=== PATIENT | male | born 1960 | race Caucasian/White ===

== ENCOUNTER 2016-03-28 09:13 | Emergency (ER) | payer BC, OTHER ==
[2016-03-28] MEDS ORDERED: oxyCODONE/Acetamin 5/325 MG* TAB PO ONE (09:44)
[2016-03-28 10:14] LABS: Hematocrit 45 % (42-52); Mean Corpuscular HGB Conc 33 g/dl (31-36); Mean Corpuscular Hemoglobin 30 pg (27-31); Mean Corpuscular Volume 91 fL (80-94); Mean Platelet Volume 7 um3 (7.4-10.4); Red Blood Count 4.96 10^6/ul (4.0-5.4); Red Cell Distribution Width 14 % (10.5-15); White Blood Count 14.3 10^3/ul (3.5-10.8)
[2016-03-28 10:40] LABS: BUN/Creatinine Ratio 11.9 (8-20); Calcium 9.7 mg/dL (8.6-10.3); EGFR Non-African American 94.9 (>60); Globulin 3.5 g/dL (2-4); Potassium 3.9 mmol/L (3.5-5.0); Total Bilirubin 0.6 mg/dL (0.2-1.0); Total Protein 7.5 g/dL (6.4-8.9)
[2016-03-28] MEDS ORDERED: NS 0.9% 1000 ML* 2,000 ML IV ONE (10:43)
[2016-03-28] MEDS ORDERED: Clindamycin 600 MG IVPREMIX(* 600 MG/50 ML SDV IV ONE (10:44)
[2016-03-28] MEDS ORDERED: NS 0.9% IV ONE (10:46)
[2016-03-28] MEDS ORDERED: Iohexol 300* (CONTRAST) 10 ML SDV IV ONE (10:54)
--- NOTE | 2016-03-28 11:17 | RAD ---
Indication: Dental pain, facial swelling. CT of the facial bones was obtained in the axial plane. Coronal and sagittal reconstructed images were obtained. The frontal sinuses are unremarkable. No abnormal erosions are noted. Ethmoid air cells are otherwise unremarkable. The orbits are intact. Mucous retention cyst are noted in the floor of both maxillary sinuses. The maxilla demonstrates no evidence of abnormal fractures. The parotid glands are unremarkable. Submandibular glands are unremarkable. There is soft tissue swelling superficial to the right mandibular ramus. There appears to be resorption bone with multiple dental caries in the right lower bicuspid with lucent areas within the mandible. Large lucent area with erosion of the outer cortex of the mandible is noted. No drainable fluid collections are noted. IMPRESSION: SOFT TISSUE SWELLING OVER THE RIGHT RAMUS OF THE MANDIBLE. THERE APPEARS TO BE A LUCENCY AT THE APEX OF THE RIGHT LOWER BICUSPIDS WITH EROSION OF THE OUTER CORTEX OF THE MANDIBLE. MULTIPLE DENTAL CARIES ARE NOTED.
--- NOTE | 2016-03-28 11:31 | ED ---
Throat Pain/Nasal Congestion - HPI Summary HPI Summary: 55F w/ PMH ogf basal cell carincoma presents with right lower dental pain since yesterday. woke up with swelling to right side of jaw. He denies any chest pain or shortness of breath. He says the pain is starting to go down his neck. He denies any fever. He has basal cell carincoma on his upper lip. - History of Current Complaint Chief Complaint: EDDentalPain Time Seen by Provider: 03/28/16 09:29 - Allergies/Home Medications Allergies/Adverse Reactions: Allergies Allergy/AdvReac Type Severity Reaction Status Date / Time No Known Allergies Allergy Verified 03/28/16 09:25 PMH/Surg Hx/FS Hx/Imm Hx Endocrine/Hematology History: Denies: Hx Diabetes Cardiovascular History: Denies: Hx Hypertension History: Denies: Hx Renal Disease - Cancer History Cancer Type, Location and Year: basal cell upper lip - Surgical History Surgery Procedure, Year, and Place: EUA right knee. left wrist fusion Infectious Disease History: Yes Infectious Disease History: Denies: Traveled Outside the [place] in Last 30 Days - Family History Known Family History: Negative: Cardiac Disease - Social History Alcohol Use: Rare Substance Use Type: Reports: None Smoking Status (MU): Current Every Day Smoker Review of Systems Negative: Fever Positive: Dental Pain, Other - facial swelling Negative: Chest Pain Negative: Shortness Of Breath All Other Systems Reviewed And Are Negative: Yes Physical Exam Triage Information Reviewed: Yes Vital Signs On Initial Exam: Initial Vitals Temp Pulse Resp BP Pulse Ox 98.4 F 87 17 129/71 98 03/28/16 09:22 03/28/16 09:22 03/28/16 09:22 03/28/16 09:22 03/28/16 09:22 Vital Signs Reviewed: Yes Appearance: Positive: Pain Distress Skin: Positive: Warm, Dry Head/Face: Positive: Other - swelling noted of right jaw Eyes: Positive: Normal, EOMI, SHAHRAM, Conjunctiva Clear ENT: Positive: Normal ENT inspection, Pharynx normal, TMs normal, Dental tenderness. Negative: Muffled/hoarse voice Dental: Positive: Percussion Tenderness @ - 29-30, Gross Decay/Caries @, Other - tenderness along jaw line, no submanidubular tenderness Neck: Positive: Supple, Nontender, No Lymphadenopathy Respiratory/Lung Sounds: Positive: Clear to Auscultation, Breath Sounds Present Cardiovascular: Positive: Normal, RRR - Bowlus Coma Scale Coma Scale Total: 15 Diagnostics - Vital Signs Vital Signs Temp Pulse Resp BP Pulse Ox 03/28/16 09:22 98.4 F 87 17 129/71 98 - Laboratory Lab Results: Lab Results 03/28/16 03/28/16 03/28/16 Range/Units 09:55 09:55 09:55 WBC 14.3 H (3.5-10.8) 10^3/ul RBC 4.96 (4.0-5.4) 10^6/ul Hgb 15.0 (14.0-18.0) g/dl Hct 45 (42-52) % MCV 91 (80-94) fL MCH 30 (27-31) pg MCHC 33 (31-36) g/dl RDW 14 (10.5-15) % Plt Count 360 (150-450) 10^3/ul MPV 7 L (7.4-10.4) um3 Neut % (Auto) 70.6 (38-83) % Lymph % (Auto) 20.6 L (25-47) % [place] % (Auto) 6.9 (1-9) % Eos % (Auto) 1.3 (0-6) % Baso % (Auto) 0.6 (0-2) % Absolute Neuts (auto) 10.1 H (1.5-7.7) 10^3/ul Absolute Lymphs (auto) 2.9 (1.0-4.8) 10^3/ul Absolute Monos (auto) 1.0 H (0-0.8) 10^3/ul Absolute Eos (auto) 0.2 (0-0.6) 10^3/ul Absolute Basos (auto) 0.1 (0-0.2) 10^3/ul Absolute Nucleated RBC 0.01 10^3/ul Nucleated RBC % 0.1 Sodium 134 (133-145) mmol/L Potassium 3.9 (3.5-5.0) mmol/L Chloride 105 (101-111) mmol/L Carbon Dioxide 20 L (22-32) mmol/L Anion Gap 9 (2-11) mmol/L BUN 10 (6-24) mg/dL Creatinine 0.84 (0.67-1.17) mg/dL Est GFR ( Amer) 122.0 (>60) Est GFR (Non-Af Amer) 94.9 (>60) BUN/Creatinine Ratio 11.9 (8-20) Glucose 153 H (70-100) mg/dL Lactic Acid 2.2 H* (0.5-2.0) mmol/L Calcium 9.7 (8.6-10.3) mg/dL Total Bilirubin 0.60 (0.2-1.0) mg/dL AST 14 (13-39) U/L ALT 14 (7-52) U/L Alkaline Phosphatase 76 (34-104) U/L C-React Prot High Sens 28.05 mg/L Total Protein 7.5 (6.4-8.9) g/dL Albumin 4.0 (3.2-5.2) g/dL Globulin 3.5 (2-4) g/dL Albumin/Globulin Ratio 1.1 (1-3) Result Diagrams: 03/28/16 09:55 03/28/16 09:55 Lab Statement: Any lab studies that have been ordered have been reviewed, and results considered in the medical decision making process. - CT face CT Interpretation: Positive (See Comments) - IMPRESSION: SOFT TISSUE SWELLING OVER THE RIGHT RAMUS OF THE MANDIBLE. THERE APPEARS TO BE A LUCENCY AT THE APEX OF THE RIGHT LOWER BICUSPIDS WITH EROSION OF THE OUTER CORTEX OF THE MANDIBLE. MULTIPLE DENTAL CARIES ARE NOTED. CT Interpretation Completed By: Radiologist EENT Course/Dx - Course Course Of Treatment: 55M presents with dental pain for 1 day with swelling. obvious facial swelling. no chest pain or SOB so do not supect ludwings and has no submandibular tenderness, got labs: lactic acid and elevated WBC, clindamycin givem, CT: shows erosions into bone, called dr gilman and said will see in office today at 2:30pm, lactic acid repeat normal, patient understands and agrees with plan - Differential Diagnoses Differential Diagnoses: Dental Abscess, Dental Caries, Fractured Tooth, Gregory' s Angina - Diagnoses Provider Diagnoses: Pain, dental - Provider Notifications Discussed Care of Patient with: dr gilman Time Discussed With Above Provider: 12:00 Instructed by Provider To: Send To Office Now Discharge - Discharge Plan Condition: Stable Disposition: HOME Patient Education Materials: Dental Abscess (ED) Referrals: Bishop Gilman MD [Doctor of Dental Medicine] - Additional Instructions: Follow up with oral surgeon at 2:30 today be there at least at 2:15 Return to ED if develop any shortness of breath or chest pain
[2016-03-28] MEDS ORDERED: Morphine INJ* 4 MG/ML 1 ML CARPUJECT IV ONE (12:00)
[2016-03-28 12:23] VITALS: BP 115/95
== END 2016-03-28 12:26 | disposition home or self-care (01) ==
LOC: ED 09:13
DX: K08.89 Other specified disorders of teeth and supporting structures (principal); F17.200 Nicotine dependence, unspecified, uncomplicated; C44.01 Basal cell carcinoma of skin of lip
CPT/HCPCS: 36415; 70487; 80053; 83605; 85025; 86141; 96360; 96374; 96375; 99283; A9270-GY; J2270; Q9967